=== PATIENT | male | born 1975 | race Two or more races ===

== ENCOUNTER 2019-12-24 11:02 | Emergency (ER) | payer MEDICAID ==
[~2019-12-24] VITALS: Ht 157.5 cm; Wt 86.6 kg
[2019-12-24 11:05] VITALS: BP 120/80
[2019-12-24] MEDS ORDERED: LORAZEPAM 1 MG TABLET ONE (11:12)
[2019-12-24] MEDS ORDERED: LORAZEPAM 1 MG TABLET PO ONE (11:30)
== END 2019-12-24 11:22 | disposition home or self-care (01) ==
LOC: ER 11:04
DX: F41.9 Anxiety disorder, unspecified (principal)